=== PATIENT | female | born 1955 | race African-American/Black ===

== ENCOUNTER → 2017-09-13 | Day surgery (SDC) | payer BC ==
[~2017-09-13] MED LIST: ATOR40TA59 PO; CYCL10TA2 PO; LIDOCAINE 2% PF Vial for OR 5 ML VIAL. ONE; METF500T9 PO; PIOG30TA41 PO; PROPOFOL 40 ML IV ONE; VERA240C2 PO
--- NOTE | 2017-09-13 13:12 | PDOC1 ---
History and Physical Date of Admission Date of Admission DATE: 09/13/17 TIME: 13:07 Source Source: Chart review, Patient History of Present Illness History of Present Illness 61 y/o female here for CRC screening. Last colonoscopy 2006 historically normal. No complaints or other GI history. Past Medical History Cardiovascular: HTN, Hyperlipidemia Musculoskeletal: Osteoarthritis Endocrine: Diabetes Past Surgical History Past Surgical History: Hysterectomy, Other ("eye surgery") Family History Family History: Diabetes, Hypertension Social History Smoke: No ALCOHOL: none Drugs: None Current Medications Current Medications ASA, metformin, glyburide, verapamil,etodolac, MVI Allergies Allergies: Coded Allergies: No Known Drug Allergies (Unverified , 09/13/17) ROS Review of System Otherwise negative. Physical Exam General: Alert, Oriented X3, Cooperative, No acute distress Lungs: Clear to auscultation Heart: S1S2, RRR, no gallops, no murmurs Abdomen: Normal bowel sounds, Soft, No tenderness, No hepatosplenomegaly, No masses Rectal Exam: deferred (to procedure) Extremities: No cyanosis, No edema Skin: No significant lesion Neuro: Normal speech, Strength at 5/5 X4 ext, Normal tone, Sensation intact, Cranial nerves 3-12 NL, Reflexes 2+ Psych/Mental Status: Mental status NL, Mood NL Vitals Vitals See nursing record. VTE Prophylaxis Ordered VTE Prophylaxis Devices: No VTE Pharmacological Prophylaxi: No Assessment/Plan Assessment/Plan IMP: CRC screening, average risk. PLAN: colonoscopy. DEMETRIA MIN MD Sep 13, 2017 13:12
--- NOTE | 2017-09-13 13:50 | PDOC4 ---
PROCEDURE Procedure Colonoscopy/biopsy Indication: Screening. Meds: per anesthesia Findings: JUDY normal. Advanced to cecum. Mucosa normal. 3mm sessile polyp, mid-transverse, biopsied off. No other lesions. Brian. well. IMP: small polyp. REC: Await path. Resume meds and diet. F/u in 2 weeks. DEMETRIA MIN MD Sep 13, 2017 13:50
[2017-09-13 14:24] VITALS: BP 179/78
--- NOTE | 2017-09-16 13:32 | PATHOLOGY ---
PATHOLOGY REPORT * * * * * * * * FINAL DIAGNOSIS: Colon biopsy, transverse colon polyp: - Tubular adenoma. COMMENT: There is no high grade dysplasia or evidence of malignancy. (JPM:mml; 09/16/2017) REPORT ELECTRONICALLY SIGNED BY: Chiki Dixon M.D. DATE/TIME: 09/16/2017 13:31 * * * * * * * * GROSS PATHOLOGY: Received in formalin labeled "Gabbi Linaers, transverse polyp," is a segment of hinojosa soft tissue measuring 0.4 cm in maximum dimension. The specimen is submitted entirely in cassette A1. (TSD; 09/13/2017) INITIAL CPT CODE(S): A; 65642 Professional services performed [place] [facility] [address] Technical services performed by [facility] at [address] [place] [address] [address] [place] [address]. SPECIMEN(S) RECEIVED: A.Transverse polyp CLINICAL HISTORY: Screening PATIENT: GABBI LINARES /AGE: 1211/24/1955 (Age: 61) PATIENT #: [id number] ALT CASE #: SPECIMEN COLLECTION DATE: 09/13/2017 SPECIMEN RECEIVED DATE: 09/13/2017 [facility] - [address] [place] [address] - PHONE: [phone] * * * END OF REPORT * * *
== END | disposition home or self-care (01) ==
LOC: SURG 12:46
PROVIDERS: ATTEND Internal Medicine Gastroenterology
DX: Z12.11 Encounter for screening for malignant neoplasm of colon (principal); D12.3 Benign neoplasm of transverse colon; E78.00 Pure hypercholesterolemia, unspecified; I10 Essential (primary) hypertension; M19.90 Unspecified osteoarthritis, unspecified site; E11.9 Type 2 diabetes mellitus without complications; Z90.710 Acquired absence of both cervix and uterus; Z87.39 Personal history of other diseases of the musculoskeletal system and connective tissue; Z79.82 Long term (current) use of aspirin
CPT/HCPCS: 45380; 88305; J2704; J2001